=== PATIENT | female | born 1945 | race Caucasian/White ===

== ENCOUNTER 2020-08-30 21:15 | Observation (INO) ==
[2020-08-30] MEDS: Nitroglycerin 0.4 MG TAB.SUBL SL PRN (21:37)
[2020-08-30 21:47] LABS: Basophils % 0.5 %; Eosinophils # 0.3 K/mcL (0.0-0.6); Eosinophils % 2.9 %; Hematocrit 39.4 % (35.3-44.9); Hemoglobin 12.8 g/dL (11.5-15.4); Immature Granulocytes % 0.6 % (0-4); Lymphocytes % 23.3 %; Mean Corpuscular HGB Conc 32.5 g/dL (31.6-35.5); Mean Corpuscular Hemoglobin 29.4 pg (28.0-33.3); Mean Corpuscular Volume 90.6 fL (83.0-100.0); Mean Platelet Volume 8.9 fL (9.4-12.4); Monocytes % 11.4 %; Neutrophils # 5.2 K/mcL (1.6-8.9); Platelet Count 352 K/mcL (140-400); Red Blood Count 4.35 M/mcL (3.82-4.97); Red Cell Distribution Width 12.8 % (11.5-14.5); Segmented Neutrophils % 61.3 %; White Blood Count 8.5 K/mcL (4.3-11.1)
[2020-08-30 21:54] LABS: INR 0.9; Prothrombin Time 10.8 Seconds (9.4-12.1)
[2020-08-30 22:06] LABS: BUN/Creatinine Ratio 24 (6-26); Blood Urea Nitrogen 30 mg/dL (8-23); Calcium 8.3 mg/dL (8.6-10.3); Carbon Dioxide 26 mEq/L (23-29); Chloride 107 mEq/L (98-107); Glucose 146 mg/dL (70-105); Osmolality,Calculated 301 (280-300); Sodium 141 mEq/L (136-145); eGFR For African Americans 52 (> 60); eGFR For Non-African Americans 43 (> 60)
[2020-08-30 22:07] LABS: Troponin I < 0.03 ng/mL (< 0.04)
[2020-08-30] MEDS ORDERED: Ondansetron 4 MG/2 ML VIAL IVP STA (22:42)
[2020-08-31] MEDS ORDERED: Naloxone 0.4 MG/ML INJ IVP PRN (00:12)
[2020-08-31] MEDS ORDERED: Melatonin 3 MG TABLET PO PRN (00:12)
[2020-08-31] MEDS ORDERED: Acetaminophen 325 MG TABLET PO PRN (00:12)
[2020-08-31] MEDS ORDERED: Perflutren Lipid Microsphere 1.3 ML in 0.9 % Sodium Chloride 8.7 ML IVP PRN (00:16)
[2020-08-31 04:26] LABS: Chol/HDL Ratio 6.3 (0-4.9)
[2020-08-31] MEDS ORDERED: *HR* Heparin 5,000 UNIT/ML VIAL IVP PRN ×2 (04:34)
[2020-08-31] MEDS ORDERED: *HR* Heparin 5,000 UNIT/ML VIAL IVP ONE (04:34)
[2020-08-31] MEDS ORDERED: Heparin 25,000UNIT/250ML 1/2NS 25,000 UNIT/250 ML IV.SOLN IVC SCH (04:45)
[2020-08-31] MEDS: Nitroglycerin 0.4 MG TAB.SUBL SL PRN (05:04)
[2020-08-31 05:56] LABS: Hematocrit 39.3 % (35.3-44.9); Hemoglobin 12.7 g/dL (11.5-15.4); Mean Corpuscular HGB Conc 32.3 g/dL (31.6-35.5); Mean Corpuscular Hemoglobin 29.5 pg (28.0-33.3); Mean Corpuscular Volume 91.4 fL (83.0-100.0); Mean Platelet Volume 9.1 fL (9.4-12.4); Platelet Count 322 K/mcL (140-400); White Blood Count 10.1 K/mcL (4.3-11.1)
[2020-08-31 05:58] LABS: INR 0.9; Prothrombin Time 10.4 Seconds (9.4-12.1)
[2020-08-31 05:59] LABS: Heparin anti-factor XA UFH < 0.04 IU/mL (0.30-0.70)
[2020-08-31] MEDS ORDERED: *HR* Midazolam HCl 2 MG/2 ML VIAL ONE (09:04)
[2020-08-31] MEDS ORDERED: 0.9 % Sodium Chloride 2,000 ML ONE (09:04)
[2020-08-31] MEDS ORDERED: *HR* FentaNYL (PF) 100 MCG/2 ML VIAL ONE (09:04)
[2020-08-31] MEDS ORDERED: Heparin 1,000 UNITS/500 mL 500 ML ONE (09:04)
[2020-08-31] MEDS ORDERED: ISOVUE-370 200 ML INFUS..BTL ONE ×2 (09:05→10:06)
[2020-08-31] MEDS ORDERED: *HR* Heparin 10,000 UNIT/10 ML VIAL ONE (09:05)
[2020-08-31] MEDS ORDERED: Nitroglycerin 1,000 MCG/5 ML VIAL IV ONE (09:05)
[2020-08-31] MEDS ORDERED: *HR* Bivalirudin 250 MG VIAL IVC ONE (09:56)
[2020-08-31] MEDS ORDERED: *HR* Adenosine 6 MG/2 ML VIAL IVP ONE (10:12)
[2020-08-31 10:14] LABS: BUN/Creatinine Ratio 27 (6-26); Blood Urea Nitrogen 26 mg/dL (8-23); Calcium 8.8 mg/dL (8.6-10.3); Carbon Dioxide 24 mEq/L (23-29); Chloride 110 mEq/L (98-107); Glucose 115 mg/dL (70-105); Osmolality,Calculated 300 (280-300); Potassium 4.1 mEq/L (3.5-5.1); Sodium 142 mEq/L (136-145); Troponin I 11.54 ng/mL (< 0.04); eGFR For African Americans > 60 (> 60); eGFR For Non-African Americans 56 (> 60)
[2020-08-31] MEDS ORDERED: *HR* Ticagrelor 90 MG TABLET ONE (10:26)
[2020-08-31 11:00] LABS: Estimated Average Glucose 128 mg/dl; Hemoglobin A1C 6.1 %
[2020-08-31] MEDS ORDERED: 0.9 % Sodium Chloride 1,000 ML IVC SCH (11:00)
[2020-08-31] MEDS: Aspirin 81 MG TAB.CHEW PO SCH (11:32)
[2020-08-31] MEDS: Ondansetron 4 MG/2 ML VIAL IVP PRN (13:24)
[2020-08-31] MEDS ORDERED: *HR* Atropine Sulfate 1 MG/10 ML SYRINGE ONE (14:37)
[2020-08-31 14:51] LABS: Hemoglobin 12.3 g/dL (11.5-15.4); Mean Corpuscular HGB Conc 32.4 g/dL (31.6-35.5); Mean Corpuscular Hemoglobin 28.9 pg (28.0-33.3); Mean Corpuscular Volume 89.4 fL (83.0-100.0); Mean Platelet Volume 8.8 fL (9.4-12.4); Platelet Count 332 K/mcL (140-400); Red Blood Count 4.25 M/mcL (3.82-4.97); White Blood Count 10.4 K/mcL (4.3-11.1)
[2020-08-31] MEDS ORDERED: GI Cocktail 40 ML EACH PO ONE (14:59)
[2020-08-31] MEDS: *HR* Ticagrelor 90 MG TABLET PO SCH (21:41)
[2020-09-01] MEDS: Sennosides/Docusate Sodium TABLET PO SCH ×2 (00:14→08:22)
[2020-09-01] MEDS: Ondansetron 4 MG/2 ML VIAL IVP PRN (00:22)
[2020-09-01] MEDS: Aspirin 81 MG TAB.CHEW PO SCH (08:22)
[2020-09-01] MEDS: *HR* Ticagrelor 90 MG TABLET PO SCH (08:22)
[2020-09-01 11:27] LABS: Hematocrit 37.9 % (35.3-44.9); Hemoglobin 12.5 g/dL (11.5-15.4); Mean Corpuscular Hemoglobin 29.5 pg (28.0-33.3); Mean Corpuscular Volume 89.4 fL (83.0-100.0); Mean Platelet Volume 9.2 fL (9.4-12.4); Platelet Count 322 K/mcL (140-400); Red Blood Count 4.24 M/mcL (3.82-4.97); Red Cell Distribution Width 13.1 % (11.5-14.5); White Blood Count 11.1 K/mcL (4.3-11.1)
[2020-09-01 11:47] LABS: BUN/Creatinine Ratio 18 (6-26); Blood Urea Nitrogen 18 mg/dL (8-23); Calcium 8.6 mg/dL (8.6-10.3); Carbon Dioxide 25 mEq/L (23-29); Chloride 107 mEq/L (98-107); Glucose 112 mg/dL (70-105); Osmolality,Calculated 291 (280-300); Potassium 3.8 mEq/L (3.5-5.1); Sodium 139 mEq/L (136-145); eGFR For African Americans > 60 (> 60); eGFR For Non-African Americans 56 (> 60)
[2020-09-01] MEDS ORDERED: lisinopriL 5 MG TABLET PO SCH (14:15)
[2020-09-01 16:44] VITALS: BP 111/63
== END 2020-09-01 18:50 | disposition home or self-care (01) ==
LOC: EMEROOARM 21:15 → 3BNU 21:15 → SUATTDRO 23:31 → 3BNU 08-31 00:19 → 2NNU 08-31 10:51 → 3ANU 08-31 11:00 → 2NNU 08-31 11:03
PROVIDERS: ADMIT Internal Medicine; ATTEND Internal Medicine

== ENCOUNTER 2021-05-03 15:28 | Inpatient (IN) ==
[2021-05-03 16:22] LABS: Basophils % 0.3 %; Eosinophils % 0.1 %; Hematocrit 36.1 % (35.3-44.9); Hemoglobin 11.6 g/dL (11.5-15.4); Immature Granulocytes % 0.4 % (0-4); Lymphocytes # 0.7 K/mcL (0.6-4.6); Lymphocytes % 6.2 %; Mean Corpuscular HGB Conc 32.1 g/dL (31.6-35.5); Mean Corpuscular Hemoglobin 28.4 pg (28.0-33.3); Mean Corpuscular Volume 88.3 fL (83.0-100.0); Mean Platelet Volume 8.9 fL (9.4-12.4); Monocytes # 0.4 K/mcL (0.0-1.3); Monocytes % 3.5 %; Neutrophils # 10.5 K/mcL (1.6-8.9); Platelet Count 364 K/mcL (140-400); Red Blood Count 4.09 M/mcL (3.82-4.97); Red Cell Distribution Width 12.6 % (11.5-14.5); Segmented Neutrophils % 89.5 %; White Blood Count 11.7 K/mcL (4.3-11.1)
[2021-05-03 16:59] LABS: Troponin I < 0.03 ng/mL (< 0.04)
[2021-05-03 17:10] LABS: Alanine Aminotransferase 42 Units/L (7-52); Albumin 4.4 g/dL (3.5-5.7); Albumin/Globulin Ratio 1.3 (1.1-2.2); Alkaline Phosphatase 89 Units/L (34-104); Amylase 618 Units/L (29-103); Aspartate Amino Transferase 32 Units/L (13-39); BUN/Creatinine Ratio 29 (6-26); Bilirubin,Direct 0.2 mg/dL (0.0-0.2); Bilirubin,Indirect 0.5 mg/dL (0.0-1.0); Bilirubin,Total 0.7 mg/dL (0.3-1.0); Blood Urea Nitrogen 28 mg/dL (8-23); Calcium 8.8 mg/dL (8.6-10.3); Carbon Dioxide 24 mEq/L (23-29); Chloride 98 mEq/L (98-107); Globulin 3.3 g/dL (2.4-3.5); Glucose 127 mg/dL (70-105); Lipase > 1800 Units/L (11-82); Osmolality,Calculated 281 (280-300); Potassium 4.4 mEq/L (3.5-5.1); Sodium 132 mEq/L (136-145); Total Protein 7.7 g/dL (6.4-8.9); eGFR For African Americans > 60 (> 60); eGFR For Non-African Americans 58 (> 60)
[2021-05-03] MEDS ORDERED: 0.9 % Sodium Chloride 1,000 ML IVC ONE (17:42)
[2021-05-03] MEDS ORDERED: Morphine Sulfate 2 MG/ML SYRINGE IVP ONE (17:44)
[2021-05-03] MEDS ORDERED: Isovue-370 500 ML BOTTLE IVP ONE (17:44)
[2021-05-03 18:22] LABS: Bilirubin,Urine Negative (Negative); Blood,Urine Negative (Negative); Clarity,Urine Clear (Clear); Color,Urine Colorless (Yellow); Glucose,Urine (UA) Normal (Normal); Ketones,Urine Negative (Negative); Leukocyte Esterase,Urine Large (Negative); Mucus,Urine Few per lpf (None-Few); Nitrite,Urine Negative (Negative); PH,Urine 5.5 pH Units (5.0-8.0); Protein,Urine Trace mg/dL (Neg-Trace); RBC,Urine 0-3 per hpf (0-3); Specific Gravity,Urine 1.015 (1.010-1.025); Squamous Epithelial Cell,Urine Few per hpf (None-Few); Urobilinogen,Urine Normal (Normal); WBC,Urine 0-3 per hpf (0-3)
[2021-05-03 18:59] LABS: Influenza A PCR Negative (Negative); Influenza B PCR Negative (Negative); Resp. Syncytial Virus PCR Negative (Negative)
[2021-05-03 19:02] LABS: SARS-CoV-2 by PCR (In House) Negative (Negative)
[2021-05-03] MEDS ORDERED: Ondansetron 4 MG/2 ML VIAL IVP ONE (19:45)
[2021-05-03] MEDS ORDERED: Naloxone 0.4 MG/ML INJ IVP PRN (21:11)
[2021-05-03] MEDS ORDERED: Ondansetron 4 MG/2 ML VIAL IVP PRN (21:11)
[2021-05-03 21:22] LABS: Chol/HDL Ratio 2.8 (0-4.9); Cholesterol 107 mg/dL (< 200); Ethanol < 10 mg/dL (Less than 10); HDL Cholesterol 38 mg/dL (40-59); LDL Cholesterol,Calculated 52 mg/dL (< 100); Triglycerides 83 mg/dL (< 150)
[2021-05-03] MEDS ORDERED: Morphine Sulfate 2 MG/ML SYRINGE IVP PRN (22:54)
[2021-05-03] MEDS: Ringers Solution, Lactated 1,000 ML IVC SCH (23:06)
[2021-05-04] MEDS: Ringers Solution, Lactated 1,000 ML IVC SCH (06:47)
[2021-05-04] MEDS: lisinopriL 5 MG TABLET PO SCH (09:14)
[2021-05-04] MEDS: Aspirin Enteric Coated 81 MG Tablet PO SCH (09:14)
[2021-05-04] MEDS: (Ezetimibe [Zetia] 10 MG Tablet) PO SCH (09:16)
[2021-05-04 10:38] LABS: Basophils % 0.3 %; Eosinophils # 0.1 K/mcL (0.0-0.6); Eosinophils % 0.7 %; Hematocrit 32.3 % (35.3-44.9); Hemoglobin 10.8 g/dL (11.5-15.4); Immature Granulocytes % 0.3 % (0-4); Lymphocytes # 0.9 K/mcL (0.6-4.6); Lymphocytes % 9.4 %; Mean Corpuscular HGB Conc 33.4 g/dL (31.6-35.5); Mean Corpuscular Hemoglobin 29.3 pg (28.0-33.3); Mean Corpuscular Volume 87.8 fL (83.0-100.0); Mean Platelet Volume 8.8 fL (9.4-12.4); Monocytes # 1.1 K/mcL (0.0-1.3); Monocytes % 11.7 %; Neutrophils # 7.5 K/mcL (1.6-8.9); Platelet Count 337 K/mcL (140-400); Red Blood Count 3.68 M/mcL (3.82-4.97); Red Cell Distribution Width 12.9 % (11.5-14.5); Segmented Neutrophils % 77.6 %; White Blood Count 9.7 K/mcL (4.3-11.1)
[2021-05-04 11:30] LABS: Alanine Aminotransferase 27 Units/L (7-52); Albumin 3.6 g/dL (3.5-5.7); Albumin/Globulin Ratio 1.4 (1.1-2.2); Alkaline Phosphatase 77 Units/L (34-104); Aspartate Amino Transferase 22 Units/L (13-39); BUN/Creatinine Ratio 17 (6-26); Bilirubin,Direct 0.1 mg/dL (0.0-0.2); Bilirubin,Indirect 0.7 mg/dL (0.0-1.0); Bilirubin,Total 0.8 mg/dL (0.3-1.0); Blood Urea Nitrogen 16 mg/dL (8-23); Calcium 8.7 mg/dL (8.6-10.3); Carbon Dioxide 25 mEq/L (23-29); Chloride 107 mEq/L (98-107); Globulin 2.6 g/dL (2.4-3.5); Glucose 99 mg/dL (70-105); Lipase > 1800 Units/L (11-82); Magnesium 1.9 mg/dL (1.6-2.6); Osmolality,Calculated 289 (280-300); Potassium 4.3 mEq/L (3.5-5.1); Sodium 139 mEq/L (136-145); Total Protein 6.2 g/dL (6.4-8.9); eGFR For African Americans > 60 (> 60); eGFR For Non-African Americans 59 (> 60)
[2021-05-04] MEDS ORDERED: Gadolinium Contrast Agent (WT Based) IV PRN (17:55)
[2021-05-04] MEDS ORDERED: GADOBUTROL 30 MMOL/30 ML VIAL IVP ONE (19:39)
[2021-05-05 07:37] LABS: Hematocrit 34.9 % (35.3-44.9); Hemoglobin 11.2 g/dL (11.5-15.4); Mean Corpuscular HGB Conc 32.1 g/dL (31.6-35.5); Mean Corpuscular Hemoglobin 28.9 pg (28.0-33.3); Mean Corpuscular Volume 90.2 fL (83.0-100.0); Mean Platelet Volume 8.9 fL (9.4-12.4); Platelet Count 342 K/mcL (140-400); Red Blood Count 3.87 M/mcL (3.82-4.97); Red Cell Distribution Width 13.2 % (11.5-14.5); White Blood Count 7.7 K/mcL (4.3-11.1)
[2021-05-05 07:41] VITALS: BP 149/72; PULSE 68; TEMP 97.7; O2SAT 96
[2021-05-05 07:57] LABS: Alanine Aminotransferase 24 Units/L (7-52); Albumin 3.8 g/dL (3.5-5.7); Albumin/Globulin Ratio 1.4 (1.1-2.2); Alkaline Phosphatase 81 Units/L (34-104); Aspartate Amino Transferase 21 Units/L (13-39); BUN/Creatinine Ratio 20 (6-26); Bilirubin,Total 0.9 mg/dL (0.3-1.0); Blood Urea Nitrogen 17 mg/dL (8-23); Calcium 8.9 mg/dL (8.6-10.3); Carbon Dioxide 24 mEq/L (23-29); Chloride 106 mEq/L (98-107); Globulin 2.8 g/dL (2.4-3.5); Glucose 74 mg/dL (70-105); Osmolality,Calculated 288 (280-300); Potassium 4.1 mEq/L (3.5-5.1); Sodium 139 mEq/L (136-145); Total Protein 6.6 g/dL (6.4-8.9); eGFR For African Americans > 60 (> 60); eGFR For Non-African Americans > 60 (> 60)
[2021-05-05] MEDS: lisinopriL 5 MG TABLET PO SCH (08:13)
[2021-05-05] MEDS: Aspirin Enteric Coated 81 MG Tablet PO SCH (08:13)
[2021-05-05] MEDS: (Ezetimibe [Zetia] 10 MG Tablet) PO SCH (08:14)
== END 2021-05-05 12:12 | disposition home or self-care (01) | DRG 439 ==
LOC: 3ANU 15:28 → EMEROOARM 15:28 → 3ANU 21:55 → SUATTDRO 22:28
PROVIDERS: ADMIT Internal Medicine; ATTEND Internal Medicine